=== PATIENT | female | born 1960 | race Caucasian/White ===

== ENCOUNTER 2019-12-25 08:21 | Outpatient (CLI) | payer OTHER, SELFPAY ==
--- NOTE | ~2019-12-25 | MM_ITS ---
EXAMINATION: MM screening [facility] BI w alex HISTORY: Screening mammogram TECHNIQUE: Craniocaudal and mediolateral oblique 3-D tomosynthesis images were obtained and synthetic 2-D images were generated. CAD analysis was submitted and interpreted. COMPARISON: 12/18/2018, 12/10/2017, 12/09/2016 bilateral digital screening mammogram examinations BREAST PARENCHYMAL COMPOSITION: The breasts are heterogeneously dense, which may obscure small masses . FINDINGS: There is no evidence of suspicious mass, calcification, or architectural distortion to sugg est malignancy in either breast. There has been no suspicious interval change. IMPRESSION: 1. No mammographic evidence of malignancy. 2. Recommend routine screening mammography in one year. BI-RADS Category 1: Negative Reviewed, dictated and finalized at location A.
== END 2019-12-25 08:22 | disposition home or self-care (01) ==
PROVIDERS: PCP Family Medicine; Visit Provider Obstetrics & Gynecology Gynecology
DX: Z12.31 Encounter for screening mammogram for malignant neoplasm of breast (principal)
CPT/HCPCS: 77063; 77067

== ENCOUNTER 2020-01-29 14:43 | Outpatient (CLI) | payer OTHER, SELFPAY ==
--- NOTE | ~2020-01-29 | DEXA_ITS ---
Bone Density Report Name: Eufemia Lechuga Age: 59 Sex: Female Ethnicity: White Date of : 1960 Indication: osteopenia; height loss; Referring Provider: CHRISTY BAE Study: Bone densitometry was performed. Exam Date: January 29, 2020 Accession number: [id number] Bone Density: Region BMD T-score Z-score Classification AP Spine (L1-L4) 0.809 -2.2 -0.9 Osteopenia Femoral Neck (Left) 0.713 -1.2 -0.1 Osteopenia Total Hip (Left) 0.882 -0.5 0.3 Normal Total Hip Bilateral Avg 0.924 -0.2 0.7 Normal Femoral Neck (Right) 0.742 -1.0 0.2 Normal Total Hip (Right) 0.965 0.2 1.0 Normal World Health Organization criteria for BMD impression classify patients as: Normal (T-score at or above -1.0), Osteopenia (T-score between -1.0 and -2.5), or Osteoporosis (T-score at or below -2.5). 10-year Fracture Risk(1): Major Osteoporotic Fracture 6.6% Hip Fracture 0.4% Reported Risk Factors: [place] (), Neck BMD=0.713, BMI=27.4 (1) FRAX(R) Version 3.08. Fracture probability calculated for an untreated patient. Fracture probability may be lower if the patient has received treatment. Previous Exams: Region Exam Age BMD T-score BMD Change BMD Change Date g/cm2 vs Baseline vs Previous AP Spine(L1-L4) 01/29/2020 59 0.809 -2.2 -0.068(-7.8%)# -0.068(-7.8%)# 12/10/2017 57 0.877 -1.5 Total Hip(Left) 01/29/2020 59 0.882 -0.5 -0.024(-2.6%) -0.024(-2.6%) 12/10/2017 57 0.906 -0.3 Total Hip(Right) 01/29/2020 59 0.965 0.2 -0.001(-0.1%) -0.001(-0.1%) 12/10/2017 57 0.966 0.2 *Denotes significance at 95% confidence level, LSC for AP Spine = 0.022 g/cm2, LSC for Total Hip = 0.027 g/cm2 Clinical Information Provided by Patient: Has used the following medications: HRT (i.e. estrogen/hormone therapy), Vitamin D, Calcium Patient maximum height was 67.75 Menopause Age: 58 Drinks caffeinated beverages Onset of menses at age 15 Number of children 2 Impression: The patient has low bone mass, based on the Total Spine T-score. The patient has an estimated ten-year risk of hip fracture of 0.4% and an estimated ten-year risk of major fracture of 6.6%, based on the WHO FRAX algorithm. No significant bone loss was observed. Discussion: BONE DENSITY IS LOW AT ONE OR MORE SKELETAL SITES. This patient's lowest T-score is low at one or more skeletal sites. It meets the World Health Organization's (WHO) criteria for ?low bone mass? (T-score betw
== END 2020-01-29 14:44 | disposition home or self-care (01) ==
PROVIDERS: PCP Family Medicine; Visit Provider Obstetrics & Gynecology Gynecology
DX: M85.88 Other specified disorders of bone density and structure, other site (principal); Z78.0 Asymptomatic menopausal state; M85.852 Other specified disorders of bone density and structure, left thigh
CPT/HCPCS: 77080

== ENCOUNTER 2020-12-27 15:04 | Outpatient (CLI) | payer OTHER, SELFPAY ==
--- NOTE | ~2020-12-27 | MM_ITS ---
EXAMINATION: MM screening [facility] BI w alxe HISTORY: Screening TECHNIQUE: Craniocaudal and mediolateral oblique 3-D tomosynthesis images were obtained and synthetic 2-D images were generated. CAD analysis was submitted and interpreted. COMPARISON: Comparison to multiple prior studies sequentially, with oldest reviewed study dated 12/07. BREAST PARENCHYMAL COMPOSITION: The breasts are heterogenously dense, which may obscure small masses. FINDINGS: There are developing asymmetries in the lateral aspect of the right breast and upper outer quadrant of the left breast. IMPRESSION: 1. Developing bilateral breast asymmetries. 2. Additional mammographic views and possible breast ultrasound are recommended. BI-RADS Category 0: Incomplete: Needs additional imaging evaluation. Reviewed, dictated and finalized at location A. IMPRESSION: 1. Developing bilateral breast asymmetries. 2. Additional mammographic views and possible breast ultrasound are recommended . BI-RADS Category 0: Incomplete: Needs additional imaging evaluation.
== END 2020-12-27 15:05 | disposition home or self-care (01) ==
LOC: ANHIMG 15:06
PROVIDERS: PCP Family Medicine; Visit Provider Obstetrics & Gynecology Gynecology
DX: Z12.31 Encounter for screening mammogram for malignant neoplasm of breast (principal); R92.8 Other abnormal and inconclusive findings on diagnostic imaging of breast
CPT/HCPCS: 77063; 77067

== ENCOUNTER 2021-01-24 13:19 | Outpatient (CLI) | payer OTHER, SELFPAY ==
--- NOTE | ~2021-01-24 | MM_ITS ---
EXAMINATION: MM diagnostic mammo BI HISTORY: Bilateral breast asymmetries on screening mammogram TECHNIQUE: Additional 3-D tomosynthesis images of the breasts were performed and synthetic 2-D images were generated. CAD analysis was submitted and interpreted. COMPARISON: 12/27/2020, 12/25/2019, 12/18/2018, 12/10/2017 BREAST PARENCHYMAL COMPOSITION: The breasts are heterogeneously dense, which may obscure small masses . FINDINGS: There is a return to baseline fibroglandular appearance with spot compression of the breast s in the areas questioned on screening mammogram. No suspicious mass, calcification, or architectural distortion are identified. IMPRESSION: 1. No mammographic evidence of malignancy. 2. Recommend routine screening mammography in one year. BI-RADS Category 1: Negative Reviewed, dictated and finalized at location A.
== END 2021-01-24 13:20 | disposition home or self-care (01) ==
LOC: ANHIMG 13:21
PROVIDERS: PCP Family Medicine; Visit Provider Obstetrics & Gynecology Gynecology
DX: R92.8 Other abnormal and inconclusive findings on diagnostic imaging of breast (principal)
CPT/HCPCS: 77066

== ENCOUNTER 2022-04-20 12:33 | Day surgery (SDC) | payer OTHER, SELFPAY ==
[2022-04-04 11:22] VITALS: BMI 26.6
[2022-04-20 13:00] VITALS: BP 114/79; PULSE 81; RESP 16; O2SAT 97
--- NOTE | 2022-04-20 13:14 | PM.IMHP ---
H&P: HPI History of Present Illness Date/Time: 04/20/22 13:14 Chief Complaint: history of colon polyp. Narrative: This is a 61-year-old white female patient who presents for screening colonoscopy. Patient has a prior history of colon polyps. She has had several previous colonoscopies. Most recently 5 years ago. Patient states that her current weight appetite and bowel movements are normal. Patient denies abdominal pain. She has had no bleeding. Family history is noncontributory. Patient does report an aunt who had colon cancer. Review of Systems Review of Systems: Review of systems noncontributory. [facility] Past Medical History Medical History Dyslipidemia GERD without esophagitis Left fibular fracture 12/2005 Multinodular goiter Osteopenia Recurrent herpes simplex Surgical History Surgical History History of root canal procedure (~2020) Family History Family History Mother Hypertension Father Asthma Grandparent Family history of cardiovascular disease Other Family history of malignant neoplasm of breast Social History Social History Smoking status: Never smoker Second hand tobacco smoke exposure: No Alcohol intake: never Substance use: never Substance use type: does not use Living arrangements: with family Additional living arrangements comments: Additional occupation/education comments: [employer] Gender identity (if verbalized by the patient): Male Sexual Orientation (if Verbalized by the Patient): Straight or Heterosexual Spiritual care concerns: No Meds Home Medications and Allergies Home Medications Medication Instructions Recorded Confirmed Type estradiol-norethindrone acet 0.5 1 tablet PO DAILY 09/04/19 04/20/22 History mg-0.1 mg tablet alendronate 70 mg tablet 70 mg PO WEEKLY 12/20/20 04/20/22 History cholecalciferol (vitamin D3) 50 50 mcg PO DAILY 06/27/21 04/20/22 History mcg (2,000 unit) capsule acyclovir 400 mg tablet 400 mg PO TID PRN Fever blisters 11/22/21 04/20/22 Rx #90 tabs simvastatin 40 mg tablet 40 mg PO QHS #90 tabs 12/28/21 04/20/22 Rx pantoprazole 40 mg tablet,delayed 40 mg PO DAILY #90 tabs 01/18/22 04/20/22 Rx release sodium sul 1.479 gram-potas ch See Rx Instructions PO PER PKG DIR 01/19/22 Rx 0.188 gram-magnes sul 0.225 gram #24 tabs tablet (Sutab) Allergies Allergy/AdvReac Type Severity Reaction Status Date / Time trimethoprim Allergy Intermediate Hives Verified 04/20/22 12:57 Sulfa (Sulfonamide Allergy Mild HIVES Verified 04/20/22 12:57 Antibiotics) sulfamethoxazole Allergy Mild HIVES Verified 04/20/22 12:57 erythromycin base Allergy Unknown Other Verified 04/20/22 12:57 sulfamethizole Allergy Unknown unknown Verified 04/20/22 12:57 Exam Narrative: Physical exam reveals patient to be alert. Vital signs stable. HEENT exam is unremarkable. Patient is anicteric. Lungs are clear also Koul taken and percussion. Heart is without murmur or extra sounds. Abdomen bowel sounds present soft nontender with no hepatosplenomegaly. Digital external rectal exam is normal. Assessment and Plan Assessment and plan (1) History of colon polyps: Code(s): Z86.010 - Personal history of colonic polyps Status: Acute Assessment and Plan: Patient has a prior history of colon polyps. Plan is for surveillance colonoscopy now. Further recommendations will be given after endoscopy. Plan follow-up colonoscopy at 5 year intervals.
--- NOTE | 2022-04-20 13:16 | WPDANESEPPF ---
Anes - Initial Pre Proc Eval Procedure: Operation Date: 04/20/22 14:00 Proposed Procedures p Screening Colonoscopy - Carlton Boyd MD Date/Time: 04/20/22 13:16 Surgeon: Carlton Boyd MD Pre Op Diagnosis: Neoplasm screening, history of colon polyps Patient Data Age: 61 Gender: F Height: 1.7 m Weight: 77 kg Allergies Allergy/AdvReac Type Severity Reaction Status Date / Time trimethoprim Allergy Intermediate Hives Verified 04/20/22 12:57 Sulfa (Sulfonamide Allergy Mild HIVES Verified 04/20/22 12:57 Antibiotics) sulfamethoxazole Allergy Mild HIVES Verified 04/20/22 12:57 erythromycin base Allergy Unknown Other Verified 04/20/22 12:57 sulfamethizole Allergy Unknown unknown Verified 04/20/22 12:57 Home Medications Medication Instructions Recorded Confirmed Type estradiol-norethindrone acet 0.5 1 tablet PO DAILY 09/04/19 04/20/22 History mg-0.1 mg tablet alendronate 70 mg tablet 70 mg PO WEEKLY 12/20/20 04/20/22 History cholecalciferol (vitamin D3) 50 50 mcg PO DAILY 06/27/21 04/20/22 History mcg (2,000 unit) capsule acyclovir 400 mg tablet 400 mg PO TID PRN Fever blisters 11/22/21 04/20/22 Rx #90 tabs simvastatin 40 mg tablet 40 mg PO QHS #90 tabs 12/28/21 04/20/22 Rx pantoprazole 40 mg tablet,delayed 40 mg PO DAILY #90 tabs 01/18/22 04/20/22 Rx release sodium sul 1.479 gram-potas ch See Rx Instructions PO PER PKG DIR 01/19/22 Rx 0.188 gram-magnes sul 0.225 gram #24 tabs tablet (Sutab) Patient hx anesthesia problems: none Family hx anesthesia problems: none Results Review: All pre-operative results and documents have been reviewed as part of the pre-operative evaluation. [facility] Past Medical History Medical History Dyslipidemia GERD without esophagitis Left fibular fracture 12/2005 Multinodular goiter Osteopenia Recurrent herpes simplex Surgical History Surgical History (Updated 04/20/22 @ 13:17 by Jack Ruiz MD) H/O colonoscopy History of root canal procedure (~2020) Family History Family History Mother Hypertension Father Asthma Grandparent Family history of cardiovascular disease Other Family history of malignant neoplasm of breast Social History Social History Smoking status: Never smoker Second hand tobacco smoke exposure: No Alcohol intake: never Substance use: never Substance use type: does not use Living arrangements: with family Additional living arrangements comments: Additional occupation/education comments: [employer] Gender identity (if verbalized by the patient): Male Sexual Orientation (if Verbalized by the Patient): Straight or Heterosexual Spiritual care concerns: No Anes - Eval Final PreProcedure Day of Procedure 04/20/22 13:16 Patient weight: overweight Heart: regular rate and rhythm Lungs: clear to auscultation Airway: Mallampati scale class II Neurological: alert and oriented Last oral intake: >/= 8 hours ASA classification: II Emergent: no Anesthesia type and monitoring: general GIVS and standard monitoring Results Review: All pre-operative results and documents have been reviewed as part of the pre-operative evaluation. Informed Consent: The patient's anesthetic plan and its attendant risks and benefits were discussed with the patient/family/POA. Questions were solicited and answers provided to the satisfaction of the patient/family/POA.
[2022-04-20 13:28] VITALS: BMI 26.0
[2022-04-20] MEDS: LACTATED RINGERS 1,000 ML 150 ML IV CONT (13:30)
--- NOTE | 2022-04-20 14:11 | SUR.PREOP ---
1300; PT WEARING MASK. DR CAMPBELL NOTICED PT CHEWING GUM. HAD PT THROW IT AWAY. DR CAMPBELL DISCUSSED RISK OF VOMITING DURING SURGERY.
[2022-04-20 14:19] VITALS: BP 111/73; PULSE 80; RESP 16; O2SAT 98
[2022-04-20 14:29] VITALS: BP 121/87; PULSE 77; RESP 15; O2SAT 100
--- NOTE | 2022-04-20 14:37 | WPDANESPN ---
Anes - Prog Note Post-Op Date/Time: 04/20/22 14:37 Cardiovascular status: normal Respiratory status: normal Airway patency: baseline Mental status: baseline Post-Op hydration status: normal Vital Signs: Last Vital Signs Pulse 80 04/20/22 14:19 Resp 16 04/20/22 14:19 BP 111/73 04/20/22 14:19 Pulse Ox 98 04/20/22 14:19 O2 Del Method Room Air 04/20/22 14:19 Pain Score (VAS): 0/10 I/O: Intake & Output 04/19/22 04/20/22 04/20/22 23:59 07:59 15:59 Intake Total 500 Balance 500 Patient Feedback: Patient satisfied with anesthetic care.
[2022-04-20 14:39] VITALS: BP 118/88; PULSE 77; RESP 15; O2SAT 100
== END 2022-04-20 14:49 | disposition home or self-care (01) ==
PROVIDERS: PCP Family Medicine; Visit Provider Internal Medicine Gastroenterology
PROC: 0DJD8ZZ Inspection of Lower Intestinal Tract, Via Natural or Artificial Opening Endoscopic (ICD-10-PCS; CPT 45378; principal; 2022-04-20 14:00)
DX: Z86.010 Personal history of colon polyps (principal)
CPT/HCPCS: 45378

== ENCOUNTER → 2022-05-11 13:21 | Outpatient (CLI) | payer OTHER, SELFPAY ==
--- NOTE | ~2022-05-11 | MM_ITS ---
EXAMINATION: MM screening [facility] BI w alex HISTORY: Screening mammogram TECHNIQUE: Craniocaudal and mediolateral oblique 3-D tomosynthesis images were obtained and synthetic 2-D images were generated. CAD analysis was submitted and interpreted. COMPARISON: 01/24/2021 bilateral diagnostic mammogram 12/27/2020, 12/25/2019 bilateral screening mammogram examinations BREAST PARENCHYMAL COMPOSITION: The breasts are heterogeneously dense, which may obscure small masses . FINDINGS: There is no evidence of suspicious mass, calcification, or architectural distortion to sugg est malignancy in either breast. There has been no suspicious interval change. IMPRESSION: 1. No mammographic evidence of malignancy. 2. Recommend routine screening mammography in one year. BI-RADS Category 1: Negative Reviewed, dictated and finalized at location A.
--- NOTE | ~2022-05-11 | DEXA_ITS ---
Bone Density Report Name: RICHIE KAHN Age: 61 Sex: Female Ethnicity: White Date of : 1960 Indication: postmenopausal; screening for osteoporosis; height loss; Referring Provider: CHRISTY BAE Study: Bone densitometry was performed. Exam Date: May 11, 2022 Accession number: [id number] Bone Density: Region BMD T-score Z-score Classification AP Spine (L1-L4) 0.925 -1.1 0.3 Osteopenia Femoral Neck (Left) 0.753 -0.9 0.4 Normal Total Hip (Left) 0.935 -0.1 0.9 Normal Femoral Neck (Right) 0.778 -0.6 0.6 Normal Total Hip (Right) 0.955 0.1 1.0 Normal Total Hip Mean 0.945 0.0 1.0 Normal World Health Organization criteria for BMD impression classify patients as: Normal (T-score at or above -1.0), Osteopenia (T-score between -1.0 and -2.5), or Osteoporosis (T-score at or below -2.5). 10-year Fracture Risk(1): Major Osteoporotic Fracture 6.8% Hip Fracture 0.3% Reported Risk Factors: [place] (), Neck BMD=0.753, BMI=27.3 (1) FRAX(R) Version 3.08. Fracture probability calculated for an untreated patient. Fracture probability may be lower if the patient has received treatment. Clinical Information Provided by Patient: Has used the following medications: Fosamax (i.e. alendronate), HRT (i.e. estrogen/hormone therapy), Vitamin D, Calcium Patient maximum height was 67 Menopause Age: 58 Drinks caffeinated beverages Onset of menses at age 15 Number of children 2 Impression: The patient has low bone mass, based on the Total Spine T-score. The patient has an estimated ten-year risk of hip fracture of 0.3% and an estimated ten-year risk of major fracture of 6.8%, based on the WHO FRAX algorithm. Discussion: BONE DENSITY IS LOW AT ONE OR MORE SKELETAL SITES. This patient's lowest T-score is low at one or more skeletal sites. It meets the World Health Organization's (WHO) criteria for ?low bone mass? (T-score between -1.0 and -2.5). The patient's 10-year risk of fracture as calculated by FRAX is less than the threshold where pharmacological therapy is recommended by the National Osteoporosis Foundation (NOF). However, all treatment decisions require clinical judgment and consideration of individual patient factors, including patient preferences, comorbidities, previous drug use, risk factors not captured in the FRAX model (e.g., frailty, falls, vitamin D deficiency, increased bone turnover, interval significant decline in bone density) and possible under or overestimation of fracture risk by FRAX. The patient should follow a healthful lifestyle (good nutrition with adequate calcium and vitamin D, and appropriate weight-bearing exercise). Follow-Up: Consider repeating this study in 2 to 3 years to reassess this patient's status, or sooner if there is some new clinical indicatio
== END ==
PROVIDERS: PCP Family Medicine; Visit Provider Obstetrics & Gynecology Gynecology
DX: Z12.31 Encounter for screening mammogram for malignant neoplasm of breast (principal); Z78.0 Asymptomatic menopausal state; M85.88 Other specified disorders of bone density and structure, other site
CPT/HCPCS: 77063; 77067; 77080

== ENCOUNTER → 2023-05-14 13:10 | Outpatient (CLI) | payer OTHER, SELFPAY ==
--- NOTE | ~2023-05-14 | MM_ITS ---
EXAMINATION: MM screening [facility] BI w alex HISTORY: Screening mammogram TECHNIQUE: Craniocaudal and mediolateral oblique 3-D tomosynthesis images were obtained and synthetic 2-D images were generated. CAD analysis was submitted and interpreted. COMPARISON: 05/11/2022, 01/24/2021, 12/27/2020 BREAST PARENCHYMAL COMPOSITION: The breasts are heterogeneously dense, which may obscure small masses . FINDINGS: No suspicious mass, calcification, or architectural distortion are identified in either sae ast to suggest malignancy. There has been no suspicious interval change. IMPRESSION: 1. No mammographic evidence of malignancy. 2. Recommend routine screening mammography in one year. BI-RADS Category 1: Negative Reviewed, dictated and finalized at location A.
== END ==
PROVIDERS: PCP Family Medicine; Visit Provider Obstetrics & Gynecology Gynecology
DX: Z12.31 Encounter for screening mammogram for malignant neoplasm of breast (principal)
CPT/HCPCS: 77063; 77067

== ENCOUNTER 2023-06-26 17:09 | Outpatient (CLI) | payer OTHER, SELFPAY | END 2023-06-26 17:10 | disposition home or self-care (01) | PROVIDERS: PCP Family Medicine; Visit Provider Family Medicine | DX: R30.0 Dysuria (principal) | CPT/HCPCS: 87086; 87088 ==

== ENCOUNTER 2024-06-09 14:55 | Outpatient (CLI) | payer OTHER, SELFPAY ==
--- NOTE | ~2024-06-09 | XR_ITS ---
AP view of the pelvis and AP and lateral views of the right hip Clinical history: Pain Findings: No acute fracture or dislocation is seen. Osseous alignment is anatomic. Bilateral hip and SI joint spaces are preserved. Soft tissues are unremarkable. Impression: No significant abnormality is seen. Reviewed, dictated and finalized at location . Impression: No significant abnormality is seen.
== END 2024-06-09 14:56 | disposition home or self-care (01) ==
LOC: GOSHIMG 14:56
PROVIDERS: PCP Nurse Practitioner; Visit Provider Nurse Practitioner
DX: R10.31 Right lower quadrant pain (principal)
CPT/HCPCS: 73502

== ENCOUNTER 2024-08-05 08:26 | Outpatient (CLI) | payer OTHER, SELFPAY ==
--- NOTE | ~2024-08-05 | MM_ITS ---
EXAMINATION: MM screening [facility] BI w alex HISTORY: Screening TECHNIQUE: Craniocaudal and mediolateral oblique 3-D tomosynthesis images were obtained and synthetic 2-D images were generated. CAD analysis was submitted and interpreted. COMPARISON: 05/14/2023 and dating back to 12/25/2019 BREAST PARENCHYMAL COMPOSITION: There are scattered areas of fibroglandular density. FINDINGS: Multilobulated asymmetry within the upper outer quadrant of the right breast approximately 3 to 4 cm from the nipple for which spot compression followed by a focused ultrasound is recommended. Otherwise stable parenchymal pattern without suspicious microcalcifications or architectural distorti on. IMPRESSION: Multilobulated asymmetry within the upper outer quadrant of the right breast approximately 3 to 4 cm from the nipple for which spot compression followed by a focused ultrasound is recommended. BI-RADS Category 0: Incomplete, additional imaging is needed. Reviewed, dictated and finalized at location A. ER HELPER IMPRESSION: Multilobulated asymmetry within the upper outer quadrant of the right breast ap proximately 3 to 4 cm from the nipple for which spot compression followed by a focused ultrasound is recommended. BI-RADS Category 0: Incomplete, additional imaging is needed.
== END 2024-08-05 08:27 | disposition home or self-care (01) ==
PROVIDERS: PCP Nurse Practitioner; Visit Provider Nurse Practitioner
DX: Z12.31 Encounter for screening mammogram for malignant neoplasm of breast (principal); R92.8 Other abnormal and inconclusive findings on diagnostic imaging of breast
CPT/HCPCS: 77063; 77067

== ENCOUNTER 2024-08-20 09:35 | Outpatient (CLI) | payer OTHER, SELFPAY ==
--- NOTE | ~2024-08-20 | MR_ITS ---
EXAMINATION: MR hip RT wo con DATE: 08/20/2024 10:25 INDICATION: Pain in right hip. TECHNIQUE: Magnetic resonance imaging (MRI) of the right hip was performed without intravenous contra st. COMPARISON: Pelvis and right hip radiographs 06/09/2024 FINDINGS: Bones/cartilage: There is lumbar levocurvature and mild spondylosis. The femoral head/neck morphologies are normal. Th e hips demonstrate tiny osteophytes. Small ntsyr-pe-syyd images of right hip demonstrate partial-thic kness cartilage loss, worst anterosuperiorly. Labrum: The right acetabular labrum is normal. Fluid: There is a small right hip joint effusion. There is mild left trochanteric bursitis. Soft tissues: There are small partial tears of the hamstring origins. The iliopsoas tendons are normal. There is mi ld bilateral gluteus minimus and gluteus medius tendinopathy. There is a 2.1 cm cyst in the left ovar y, likely benign. IMPRESSION: 1. Mild right hip chondrosis. 2. Small right hip joint effusion. Reviewed, dictated and finalized at location A. CTOR COMPLIANCE
== END 2024-08-20 09:36 | disposition home or self-care (01) ==
LOC: GOSHIMG 09:36
PROVIDERS: PCP Chiropractor; Visit Provider Family Medicine
DX: M94.251 Chondromalacia, right hip (principal); M25.451 Effusion, right hip
CPT/HCPCS: 73721

== ENCOUNTER 2024-08-27 09:26 | Outpatient (CLI) | payer OTHER, SELFPAY ==
--- NOTE | ~2024-08-27 | MMUS_ITS ---
EXAMINATION: MM diagnostic carroll RT w alex, US breast RT limited HISTORY: Right breast mass TECHNIQUE: Additional 3-D tomosynthesis images of the right breast were performed and synthetic 2-D i mages were generated. CAD analysis was submitted and interpreted. High resolution limited right breas t ultrasound was performed. COMPARISON: 08/05/2024 BREAST PARENCHYMAL COMPOSITION:Not Dense. There are scattered areas of fibroglandular density. FINDINGS: MAMMOGRAPHIC FINDINGS: Spot compression views confirm a persistent low-density lobulated mass measuring up to [address] at the outer right breast. ULTRASOUND: At the 9:00 position right breast, 4 cm of the nipple, there is a cluster of cysts, versus septated c yst, measuring up to 1.8 x 1.3 cm in overall extent. IMPRESSION: Clustered cysts versus septated cyst at the 9:00 position of the right breast, as detailed above. Gi sheyla the minimal complexity, 6 month follow-up ultrasound recommended. BI-RADS category 3, probably benign findings. Reviewed, dictated and finalized at location M. K BUYER IMPRESSION: Clustered cysts versus septated cyst at the 9:00 position of the right breast, as detailed above. Given the minimal complexity, 6 month follow-up ultrasound recommended. BI-RADS category 3, probably benign findings.
== END 2024-08-27 09:27 | disposition home or self-care (01) ==
LOC: MICIMG 09:27
PROVIDERS: PCP Obstetrics & Gynecology Gynecology; Visit Provider Nurse Practitioner
DX: R92.8 Other abnormal and inconclusive findings on diagnostic imaging of breast (principal)
CPT/HCPCS: 76642; 77061; 77065; G0279

== ENCOUNTER 2025-02-27 09:58 | Outpatient (CLI) | payer OTHER, SELFPAY ==
--- NOTE | ~2025-02-27 | US_ITS ---
US breast RT limited INDICATION: Follow-up right breast cysts TECHNIQUE: Dedicated Limited right breast ultrasound COMPARISON: Comparison to multiple prior studies sequentially, with oldest reviewed study dated 08/27. FINDINGS: At 9:00, 4 cm from the nipple there is a cluster of microcysts measuring 1.7 cm in aggregat e. No suspicious masses to suggest malignancy. IMPRESSION: 1: Cluster of microcysts of the right breast at 9:00, 4 cm from the nipple measuring 1.7 cm. Routine yearly screening mammogram and regular clinical breast examination are recommended. BI-RADS CATEGORY 2 - BENIGN FINDINGS Reviewed, dictated and finalized at location B. IMPRESSION: 1: Cluster of microcysts of the right breast at 9:00, 4 cm from the nipple tony uring 1.7 cm. Routine yearly screening mammogram and regular clinical breast examination are recommended. BI-RADS CATEGORY 2 - BENIGN FINDINGS
== END 2025-02-27 09:59 | disposition home or self-care (01) ==
LOC: MICIMG 09:59
PROVIDERS: PCP Obstetrics & Gynecology Gynecology; Visit Provider Nurse Practitioner
DX: N60.01 Solitary cyst of right breast (principal)
CPT/HCPCS: 76642

== ENCOUNTER 2025-03-25 08:40 | Outpatient (CLI) | payer OTHER, SELFPAY ==
--- OUTSIDE RECORDS SUMMARY | 2025-03-25 08:46 | XMS_ITS | Clinical Summary ---
Author Organization [facility] [place] [address] [address] Address [address] [place] [id number] Care Team Providers Care Hassock Maker Name Role Phone Elbert Vidal MD Primary Care Provider Allergies Active Allergy Reactions Criticality Noted Date Comments Azithromycin Muscle pain Medium 02/28/2024 Sulfa Rash Medium 02/28/2024 Sulfamethoxazole-Trimethoprim Unknown 2016 Medications simvastatin (ZOCOR) 40 mg tablet Take 1 tablet (40 mg total) by mouth Active pantoprazole DR (PROTONIX) 20 mg EC tablet Take 1 tablet (20 mg total) by mouth Active norethindrone-e thin estradioL (Alyacen , 28,) 1-35 mg-mcg per tablet Take 1 tablet by mouth daily 7 Active calcium citrate-vitamin D3 250 mg-5 mcg (200 unit) tablet Take 1 tablet by mouth daily Active polycarbophil (FIBERCON) 625 mg tablet Take 4 capsules by mouth 2 (two) times a day Active multivitamin tablet Take 1 tablet by mouth daily Active omega-3 fatty acids-fish oil 300-1,000 mg capsule Take 1,400 mg by mouth daily Active ascorbic acid (VITAMIN C) 1,000 mg tablet Take 1 tablet (1,000 mg total) by mouth daily Active cetirizine (ZyrTEC) 10 mg tablet Take 1 tablet (10 mg total) by mouth daily Active vitamin E acid succinate (vitamin E succinate) 268 mg (400 unit) tablet Take 1 tablet by mouth daily Active estradioL (ESTRACE) 0.01 % (0.1 mg/gram) vaginal cream Apply a finger tip amount (.25 gram) to internal labia and vaginal opening at bedtime 2-3 times per week. 42.5 g 5 4 Active acyclovir (ZOVIRAX) 400 mg tablet 6 Active atorvastatin (LIPITOR) 40 mg tablet Take 1 tablet (40 mg total) by mouth nightly at bedtime 5 Active estradiol-noret hindrone 0.5-0.1 mg per tablet Take 1 tablet by mouth daily 5 Active glucosam-chondr -owk4-D2-A-robert (Glucosamine-Ch ondroitin Complx) 750-625-1,000 mg-mg-unit tablet 1 Active L. acidophilus/Bif id. animalis 32 billion cell capsule Take 1 capsule by mouth daily Active Lactobacillus acidophilus (Probiotic) 10 billion cell capsule 0 Active magnesium oxide (MAG-OX) 250 mg (150.8 mg elemental) tablet 2 Active meloxicam (MOBIC) 15 mg tablet Take 1 tablet (15 mg total) by mouth daily 5 Active methylPREDNISol one (Medrol, Tin,) 4 mg DosepackIndicat ions:Dermatitis follow package directions 1 packet 5 Active triamcinolone (KENALOG) 0.1 % creamIndication s:Dermatitis Apply to affected area 1-2 times daily as needed. Avoid face and groin. 30 g 5 02/28/20 26 Active predniSONE (DELTASONE) 10 mg tabletIndicatio ns:Rash and nonspecific skin eruption Take 3 tabs days 1 & 2, 2 tabs days 3 & 4, 1 tab days 5-7. 13 tablet 4 02/28/20 25 Discontin ued(Thera py completed ) Active Problems No known active problems Encounters Date Type Department Care Team Description 03/24/2025 12:10 PM CDT Lab [address] [address] Primary osteoarthritis of right hip (Primary Dx) 03/12/2025 10:40 AM CDT - 03/12/2025 11:59 PM CDT Hospital Encounter [address] [address] Vitamin D deficiency Discharge Disposition: Discharge to home or self care 03/12/2025 10:30 AM CDT Lab [facility] Outpatient Lab at [address] [id number] Vitamin D deficiency (Primary Dx) 02/27/2025 11:30 AM CDT Office Visit [facility] Convenient Care at [address] [address] Sandhya Barcenas NP Dermatitis (Primary Dx) from Last 3 Months Immunizations Immunization Administration Dates Next Due Influenza, Quadrivalent, Asia l Culture-based MDCK, Antibiotic Free, Intramuscular 05/08/2019 Influenza, Quadrivalent, Spl it, Intramuscular 05/11/2016 Influenza, Quadrivalent, Spl it, Preservative Free, Intramuscular 05/10/2023,05/18/2022,05/19/2021,05/06,05/02/2018,06/07/2017 Influenza, Trivalent, IM (MDV) 05/14/2013 MMR 12/17/2018 Tdap 12/31/2022 ZOSTER LIVE 06/27/2015 ZOSTER Recombinant 11/10/2020,05/24/2020 Medical History Medical History Date Comments GERD (gastroesophageal reflux disease) 0 Family History Medical History Relation Name Comments Alcohol abuse Brother Tray Hernandez Depression Brother Tray Hernandez Mental illness Brother Tray Hernandez Alcohol abuse Father Laureano Preciado Depression Father Laureano Preciado Mental illness Father Laureano Preciado Heart attack Maternal Grandfather Ankit Luque Overschmidt Obesity Maternal Grandfather Ankit Luque Overschmidt Miscarriages / Stillbirths Maternal Grandmother Mel Mary Overschmidt Hypertension Mother Marianne Hernandez Cancer Mother's Sister Swapna Overschmidt Guevara COPD Paternal Grandmother Teresa Hernandez Depression Sister 1 Stephani Hernandez Miscarriages / Stillbirths Sister 2 Aminta Sierra Relation Name Status Comments Brother Tray Heranndez Father Laureano Preciado Maternal Grandfather Ankit Luque Overschmidt Maternal Grandmother Mel Hernandez Overschmidt Mother Marianne Hernandez Mother's Sister Swapna Overschmidt Guevara Paternal Grandmother Teresa Hernandez Sister 1 Stephani Hernandez Sister 2 Aminta Sierra Social History Tobacco Use Types Packs/Day Years Used Date Smoking Tobacco: Never Cigarettes Smokeless Tobacco: Never Comments Unknown Sex and Gender Information Value Date Recorded Sex Assigned at Not on file Legal Sex Female 5:48 PM CURB BUILDER Gender Identity Female 06/17/2024 2:21 PM CURB BUILDER Sexual Orientation Straight 06/17/2024 2: 21 PM CURB BUILDER Obstetrics History Last Filed Vital Signs Vital Sign Reading Time Taken Comments Blood Pressure 124/84 02/27/2025 11:10 AM CDT Pulse 73 02/27/2025 11:10 AM CDT Temperature 36.3 C (97.3 F) 02/27/2025 11:10 AM CDT Respiratory Rate 18 02/27/2025 11:10 AM CDT Oxygen Saturation 98% 02/27/2025 11:10 AM CDT Inhaled Oxygen Concentration - - Weight 77.1 kg (170 lb) 02/27/2025 11:10 AM CDT Height 170.2 cm (5' 7) 02/28/2024 3:21 PM CDT Body Mass Index 26.63 02/28/2024 3:21 PM CDT Plan of Treatment Health Maintenance Due Date Last Done Comments Breast Cancer Screening-Mammogram 1962 Cervical Cancer Screening 1962 Colon Cancer Screening-Colonoscopy 1962 Depression Screening 1962 Hepatitis C Screening 1962 Hepatitis B Screening 1980 Regular Well Visit/Exam 18-64 1980 Influenza Vaccine (#1) 2025 , 05/18/2022, 05/19/2021, Additional history exists DTaP/Tdap/Td Vaccine (2 - Td or Tdap) 12/31/2032 12/31/2022 Zoster Vaccine Completed 11/10/2020, 05/13, 06/27/2015 Pneumococcal vaccine <65 Aged Out No longer eligible based on patient's age to complete this topic Procedures Procedure Name Priority Date/Time Associated Diagnosis Comments EGFR Routine 03/24/2025 12:23 PM CDT Primary osteoarthritis of right hip GLUCOSE, RANDOM Routine 03/24/2025 12:23 PM CDT Primary osteoarthritis of right hip HEMOGLOBIN A1C Routine 03/24/2025 12:23 PM CDT Primary osteoarthritis of right hip CREATININE Routine 03/24/2025 12:23 PM CDT Primary osteoarthritis of right hip HEMOGLOBIN Routine 03/24/2025 12:23 PM CDT Primary osteoarthritis of right hip ALBUMIN Routine 03/24/2025 12:23 PM CDT Primary osteoarthritis of right hip VITAMIN D 25 HYDROXY Routine 03/12/2025 10:40 AM CDT Vitamin D deficiency from Last 3 Months Results * eGFR (03/24/2025 12:23 PM CDT) eGFR >90 >=60 mL/min/1. 73 m2 Comment: Interpretive Data Reference Interval Normal >/= 90 mL/min/1.73m2 Mildly decreased* 60 - 89 mL/min/1.73m2 Mildly to moderately decreased 45 - 59 mL/min/1.73m2 Moderately to severely decreased 30 - 44 mL/min/1.73m2 Severely decreased 15 - 29 mL/min/1.73m2 Kidney Failure < 15 mL/min/1.73m2 *Relative to young adult level Estimated glomerular filtration rate is determined by the 2020 CKD-EPI equation recommended by the National Kidney Foundation (A Unifying Approach to GFR Estimation: Recommendations of the NKF-ASK Task Force on Reassessing the Inclusion of Race in Diagnosing Kidney Disease, JASN 2020). The CKD-EPI equation should not be used for patients with unstable renal function and has not been validated in children and those over 70. Current interpretive data was last reviewed 2021. Blood 03/24/2025 12:2 3 PM CDT 03/24/2025 1:58 PM CDT us Tanner He MD LAB BLOOD ORDERABLES Final Result Performing Organization Address [facility] Co de Phone Number [address] [address] * Hemoglobin (03/24/2025 12:23 PM CDT) [facility] Hgb 13.7 11.9 - 15.5 g/dL Blood Venous blood specimen / Unknown 03/24/2025 12:23 PM CDT 03/24/2025 1:58 PM CDT Tanner He MD LAB BLOOD ORDERABLES Final Result Performing Organization Address [facility] de Phone Number [address] [address] * Hemoglobin A1c (03/24/2025 12:23 PM CDT) [facility] Hgb A1C 5.4 4.0 - 5.6 % Estimated Average Glucose 108 mg/dL [facility] Comment: The ADA recommends reporting an estimated Average Glucose (eAG) with all Hemoglobin A1c results using the equation derived from a study of 507 normal and diabetic adults. Minority populations were underrepresented and children were not included. (Diabetes Care 31:0796-4835, 2008). The eAG is not equivalent to a fasting glucose. Blood Venous blood specimen / Unknown 03/24/2025 12:23 PM CDT 03/24/2025 1:58 PM CDT Tanner He MD LAB BLOOD ORDERABLES Final Result Performing Organization Address [facility] Co de Phone Number [address] [address] * Glucose, random (03/24/2025 12:23 PM CDT) Glucose 144 70 - 199 mg/dL Comment: Interpretive Data Fasting glucose >/= 126 mg/dl is diagnostic for diabetes. Fasting is defined as no caloric intake for at least 8 hours. Fasting glucose between 100 mg/dl to 125 mg/dl is diagnostic of prediabetes. In a patient with classic symptoms of hyperglycemia or hyperglycemic crisis, a random glucose >/= 200 mg/dl is diagnostic for diabetes. In the absence of unequivocal hyperglycemia, results should be confirmed by repeat testing. The classification and Diagnosis of Diabetes Diabetes Care 2021; 46: S19-S40. Current interpretive data was last revised 2022. Blood Venous blood specimen / Unknown 03/24/2025 12:23 PM CDT 03/24/2025 1:58 PM CDT us Tanner He MD LAB BLOOD ORDERABLES Final Result Performing Organization Address [facility] Co de Phone Number [address] [place] [address] * Creatinine (03/24/2025 12:23 PM CDT) Creatinine 0.71 0.60 - 1.10 mg/dL Blood Venous blood specimen / Unknown 03/24/2025 12:23 PM CDT 03/24/2025 1:58 PM CDT Tanner He MD LAB BLOOD ORDERABLES Final Result [address] [place] [address] * Albumin (03/24/2025 12:23 PM CDT) Albumin 4.4 3.5 - 5.0 g/dL Blood Venous blood specimen / Unknown 03/24/2025 12:23 PM CDT 03/24/2025 1:58 PM CDT us Tanner He MD LAB BLOOD ORDERABLES Final Result [facility] [address] [facility] Department [place] [address] * Vitamin D 25 hydroxy (03/12/2025 10:40 AM CDT) Vitamin D 25-OH 68 30 - 80 ng/mL Blood 03/12/2025 10:4 0 AM CDT 03/12/2025 4:19 PM CDT Narrative ED[facility]IN - 03/12/2025 5:52 PM CDT FAX RESULTS TO [phone] KATHIA HARRISON us Elis Sanchez MD LAB BLOOD ORDERABLES Fin al Result [facility] [address] [place] [address] from Last 3 Months Insurance [employer] [facility] [employer] Care Teams Hassock Maker Relationship Specialty Start Date End Date Elbert Vidal MD [address] [place] [address] DR CARRERA [address] [place] [id number] PCP - General Family Practice 06/17/24
--- OUTSIDE RECORDS SUMMARY | 2025-03-25 08:46 | XMS_ITS | Clinical Summary ---
Author Organization [facility] Address [address], [address] [address] Phone Care Team Providers Care Carriage Rider Name Role Phone Carlton Reaves DO Unavailable [phone] Elbert Vidal MD Primary Care Provider Allergies Active Allergy Reactions Criticality Noted Date Comments Sulfamethoxazole-Trimethoprim Unknown 2016 Medications polyethylene glycol (MIRALAX) Powder Mix the entire bottle with 64 oz of a clear liquid. Use as directed by the office for colonoscopy prep. 255 g 0 6 Active ALAYCEN 1-35 MG-MCG Tablet Take 1 Tab by mouth daily. 12 7 Active simvastatin (ZOCOR) 40 MG Tablet Take 40 mg by mouth every evening. Active pantoprazole (PROTONIX) 40 MG Tablet Delayed Response Take 40 mg by mouth daily. Active MULTIPLE VITAMIN PO Take 1 Tab by mouth daily. Active Mosheim-3 Fatty Acids (FISH OIL PO) Take 1,400 mg by mouth daily. Active Ascorbic Acid (VITAMIN C) 1000 MG Tablet Take 1 Tab by mouth daily. Active Calcium Citrate-Vitamin D (CITRACAL + D PO) Take 1 Tab by mouth daily. Active Vitamin E 400 UNIT Tablet Take 1 Tab by mouth daily. Active Milk Thistle 175 MG Capsule Take 1 Cap by mouth daily. Active Probiotic Product (JumpLinc) Capsule Take 1 Cap by mouth daily. Active Calcium Polycarbophil (CONCENTRATED FIBER PO) Take 4 Caps by mouth 2 times daily. Active cetirizine (ZYRTEC ALLERGY) 10 MG Tablet Take 10 mg by mouth daily. Active Family History Medical History Relation Name Comments Colon Cancer Maternal Aunt Relation Name Status Comments Maternal Aunt Social History Tobacco Use Types Packs/Day Years Used Date Smoking Tobacco: Never Smokeless Tobacco: Never Alcohol Use Standard Drinks/Week Comments Yes 0 (1 standard drink = 0.6 oz pur e alcohol) Social Comments Unknown Sex and Gender Information Value Date Recorded Sex Assigned at Not on file Legal Sex Female 11:12 PM CDT Gender Identity Not on file Sexual Orientation Not on file Plan of Treatment Health Maintenance Due Date Last Done Comments Hepatitis C Virus (HCV) Screening 1962 TdaP Immunization 1962 Pap Smear 10/21/1983 Cervical Cancer Screening (CCS) 1992 HPV/Cotest 1992 Cologuard 10/21/2007 Immunochemical Fecal Occult Blood 10/21/2007 Pneumococcal Immunization (5 0+ years) (1 of 1 - PCV) 2012 Zoster Immunization (1 of 2) 2012 Colonoscopy 09/28/2021 09/28/2016 Colorectal Cancer Screening 09/28/2021 SARS-COV-2 Immunization (1 - 2023-25 season) 2024 Influenza Immunization (#1) 2025 Respiratory Syncytial Virus (RSV) Immunization (Adult) (1 - 1-dose 75+ series) 2037 Hepatitis B Immunization Aged Out No longer eligible based on patient's age to complete this topic Human Papillomavirus (HPV) Immunization Aged Out No longer eligible b ased on patient's age to complete this topic Meningococcal Immunization (ACWY) Aged Out No longer eligible based on patient's age to complete this topic Rotavirus Immunization Aged Out No lo nger eligible based on patient's age to complete this topic Procedures Procedure Name Priority Date/Time Associated Diagnosis Comments COLONOSCOPY Routine 09/28/2016 from Last 3 Months or Most Recently Relevant to Health Maintenance Results * COLONOSCOPY (09/28/2016) Geronimo Conn MD PROCEDURE/MINOR SURGICAL ORDERA BLES Final Result from Last 3 Months or Most Recently Relevant to Health Maintenance Care Teams Carriage Rider Relationship Specialty Start Date End Date Elbert Vidal MD PCP - General Family Medicine 03/11/19 Carlton Reaves DO Gastroenterology 10/02/16
--- OUTSIDE RECORDS SUMMARY | 2025-03-25 08:46 | XMS_ITS | Encounter Summary ---
Author Organization [facility] Address [address] [place] [address] Care Team Providers Care Central Office Worker Name Role Phone Elbert Vidal MD Primary Care Provider Encounter Details Date Type Department Care Team (Late st Contact Info) Description 03/24/2025 12:10 PM CDT Lab [address] [address] Primary osteoarthritis of right hip (Primary Dx) Social History Tobacco Use Types Packs/Day Years Used Date Smoking Tobacco: Never Cigarettes Smokeless Tobacco: Never Comments Unknown Sex and Gender Information Value Date Recorded Sex Assigned at Not on file Legal Sex Female 5:48 PM CHIEF BUSINESS DEVELOPMENT OFFICER Gender Identity Female 06/17/2024 2:21 PM CHIEF BUSINESS DEVELOPMENT OFFICER Sexual Orientation Straight 06/17/2024 2: 21 PM CHIEF BUSINESS DEVELOPMENT OFFICER documented as of this encounter Plan of Treatment Pending Results Name Type Priority Associated Diagnoses Date /Time Nicotine metabolite screen, urine Lab Routine Primary osteoarthritis of right hip 03/24/2025 12:23 PM CDT Scheduled Orders Name Type Priority Associated Diagnoses Orde r Schedule Nicotine metabolite screen, urine Lab Routine Primary osteoarthritis of right hip Expected: 03/27/2025, Expires: 03/24/2026 documented as of this encounter Procedures Procedure Name Priority Date/Time Associated Diagnosis [...] PM CDT Primary osteoarthritis of right hip documented in this encounter Results * eGFR (03/24/2025 12:23 PM CDT) [...] of Race in Diagnosing Kidney Disease, JASN 202). The CKD-EPI equation should not be used for patients with unstable renal function and has not been validated in children and those over 70. Current interpretive data was last reviewed 2021. Blood 03/24/2025 12:2 3 PM CDT 03/24/2025 1:58 PM CDT us Tanner He MD LAB BLOOD ORDERABLES Final Result Performing Organization Address [facility]/ZIP Co de Phone Number [address] [address] * Albumin (03/24/2025 12:23 PM CDT) Albumin 4.4 3.5 - 5.0 g/dL Blood Venous blood specimen / Unknown 03/24/2025 12:23 PM CDT 03/24/2025 1:58 PM CDT Tanner He MD LAB BLOOD ORDERABLES Final Result Performing Organization Address [facility] Co de Phone Number [address] [address] * Hemoglobin (03/24/2025 12:23 PM CDT) Hgb 13.7 11.9 - 15.5 g/dL Blood Venous blood specimen / Unknown 03/24/2025 12:23 PM CDT 03/24/2025 1:58 PM CDT us Tanner He MD LAB BLOOD ORDERABLES Final Result Performing Organization Address [facility] Co de Phone Number [address] [address] * Creatinine (03/24/2025 12:23 PM CDT) Creatinine 0.71 0.60 - 1.10 mg/dL Blood Venous blood specimen / Unknown 03/24/2025 12:23 PM CDT 03/24/2025 1:58 PM CDT us Tanner He MD LAB BLOOD ORDERABLES Final Result Performing Organization Address [facility]/ZIP Co de Phone Number [address] [place] [address] * Hemoglobin A1c (03/24/2025 12:23 PM CDT) Pathologist [facility] Hgb A1C 5.4 4.0 - 5.6 % Estimated Average Glucose 108 mg/dL [facility] Comment: The ADA recommends reporting an estimated Average Glucose (eAG) with all Hemoglobin A1c results using the equation derived from a study of 507 normal and diabetic adults. Minority populations were underrepresented and children were not included. (Diabetes Care 31:2380-6194, 2008). The eAG is not equivalent to a fasting glucose. Blood Venous blood specimen / Unknown 03/24/2025 12:23 PM CDT 03/24/2025 1:58 PM CDT us Tanner He MD LAB BLOOD ORDERABLES Final Result Performing Organization Address [facility] de Phone Number [address] [place] [address] * Glucose, random (03/24/2025 12:23 PM CDT) [facility] Glucose 144 70 - 199 mg/dL Comment: [...] BLOOD ORDERABLES Final Result Performing Organization Address [facility] de Phone Number [address] [place] [address] documented in this encounter Visit Diagnoses Diagnosis Primary osteoarthritis of right hip- Primary documented in this encounter Care Teams Central Office Worker Relationship Specialty Start Date End Date Elbert Vidal MD [address] [facility] [address] [address] PCP - General Family Practice 06/17/24 documented as of this encounter
--- NOTE | 2025-03-25 08:53 | ECG_ITS ---
Test Date: 2025-03-25 08:58:36 Measurements Intervals [place] Rate: 64 P: 49 ID: [id number] QRS: 6 QRSD: 93 T: 31 QT: 384 QTc: 397 Interpretive Statements SINUS RHYTHM POSSIBLE LEFT ATRIAL ENLARGEMENT INCOMPLETE RIGHT BUNDLE BRANCH BLOCK BORDERLINE ECG No previous ECG available for comparison Electronically Signed On 03-25-2025 09:14:01 CDT by Cooper Sandoval D.O.
== END 2025-03-25 08:41 | disposition home or self-care (01) ==
LOC: ANHCARD 08:43
PROVIDERS: PCP Obstetrics & Gynecology Gynecology; Visit Provider Orthopaedic Surgery
DX: M16.11 Unilateral primary osteoarthritis, right hip (principal); I45.10 Unspecified right bundle-branch block
CPT/HCPCS: 93005

== ENCOUNTER 2025-05-11 13:53 | Outpatient (CLI) | payer OTHER, SELFPAY ==
--- OUTSIDE RECORDS SUMMARY | 2025-05-11 14:28 | XMS_ITS | Clinical Summary ---
Author Organization [place] [address] [place] Address [address] [place] [phone] Care Team Providers Care Plant Anatomy Teacher Name Role Phone Elbert Vidal MD Primary Care Provider Allergies Active Allergy Reactions Criticality Noted Date Comments Azithromycin Muscle pain Medium 02/28/2024 Sulfa Rash Medium 02/28/2024 Sulfamethoxazole-Trimethoprim Unknown 2016 Medications simvastatin (ZOCOR) 40 mg tablet Take 1 tablet (40 mg total) by mouth Active pantoprazole DR (PROTONIX) 20 mg EC tablet Take 1 tablet (20 mg total) by mouth Active norethindrone-et hin estradioL (Alyacen , 28,) 1-35 mg-mcg per [...] by mouth nightly at bedtime 5 Active estradiol-noreth indrone 0.5-0.1 mg per tablet Take 1 tablet by mouth daily 5 Active glucosam-chondr- bhn0-D6-V-robert (Glucosamine-Cho ndroitin Complx) 750-625-1,000 mg-mg-unit tablet 1 Active L. acidophilus/Bifi d. animalis 32 billion cell capsule Take 1 capsule by mouth daily Active Lactobacillus acidophilus (Probiotic) 10 billion cell capsule 0 Active magnesium oxide (MAG-OX) 250 mg (150.8 mg elemental) tablet 2 Active meloxicam (MOBIC) 15 mg tablet Take 1 tablet (15 mg total) by mouth daily 5 Active methylPREDNISolo ne (Medrol, Tin,) 4 mg DosepackIndicati ons:Dermatitis follow package directions 1 packet 5 Active triamcinolone (KENALOG) 0.1 % creamIndications :Dermatitis Apply to affected area 1-2 times daily as needed. Avoid face and groin. 30 g 5 02/28/20 26 Active Active Problems No known active problems Encounters Date Type Department Care Team Description 03/24/2025 12:10 PM CDT Lab [address] [address] Primary osteoarthritis of right hip (Primary Dx) 03/12/2025 10:40 AM CDT - 03/12/2025 11:59 PM CDT Hospital Encounter [facility] [address] [place] [address] Vitamin D deficiency Discharge Disposition: Discharge to home or self care 03/12/2025 10:30 AM CDT Lab [facility] Outpatient Lab at [address] [phone] Vitamin D deficiency (Primary Dx) 02/27/2025 11:30 AM CDT Office Visit [facility] Convenient Care at [address] [address] Sandhya Barcenas NP Dermatitis (Primary [...] Laureano Preciado Heart attack Maternal Grandfather Ankit Rebel Overschmidt Obesity Maternal Grandfather Ankit Luque Overschmidt Miscarriages / Stillbirths Maternal Grandmother Somersetcorrina Hernandez Overschmidt Hypertension Mother Marianne Hernandez Cancer Mother's Sister Swapna Overschmidt Guevara COPD Paternal Grandmother Teresa Hernandez Depression Sister 1 Stephani Hernandez Miscarriages / Stillbirths Sister 2 Aminta Giordanoling Relation Name Status Comments Brother Tray Hernandez Father Laureano Preciado Maternal Grandfather Ankit Luque Overschmidt Maternal Grandmother Mel Mary Overschmidt Mother Marianne Hernandez Mother's Sister Swapna Overschmidt Guevara Paternal Grandmother Teresa Hernandez Sister 1 Stephani Hernandez Sister 2 Aminta Sierra Social History Tobacco Use Types Packs/Day Years Used Date Smoking Tobacco: Never Cigarettes Smokeless Tobacco: Never Comments Unknown Sex and Gender Information Value Date Recorded Sex Assigned at Not on file Legal Sex Female 5:48 PM CUTTER FINISHER Gender Identity Female 06/17/2024 2:21 PM CUTTER FINISHER Sexual Orientation Straight 06/17/2024 2: 21 PM CUTTER FINISHER Obstetrics History Last Filed Vital Signs Vital [...] Visit/Exam 18-64 1980 Influenza Vaccine (#1) 2025 3, 05/18/2022, 05/19/2021, Additional history exists DTaP/Tdap/Td Vaccine [...] PM CDT Primary osteoarthritis of right hip NICOTINE METABOLITE SCREEN, URINE Routine 03/24/2025 12:23 PM CDT Primary osteoarthritis [...] 3 PM CDT 03/24/2025 1:58 PM CDT Tanner He MD LAB BLOOD ORDERABLES Final Result Performing Organization Address [facility] de Phone Number EDVIN [address] [employer] [place] [address] * Nicotine metabolite screen, urine (03/24/2025 12:23 PM CDT) Pathologist [facility] Nicotine, ur <5.0 <5.0 ng/mL [place] [facility] Cotinine, ur <5.0 <5.0 ng/mL [facility] Anabasine ur <2.0 <2.0 ng/mL [facility] Comment: ADDITIONAL INFORMATION This test was developed and its performance characteristics determined by [facility] in a manner consistent with CLIA requirements. This test has not been cleared or approved by the U.S. Food and Drug Administration. Test Performed by: [facility] - [facility] [address] [place] [address] Physical Testing Supervisor: Maykel Severino Ph.D.; CLIA# [id number] Nornicotine, ur <2.0 <2.0 ng/mL [facility] Urine (Urine, Clean Catch) 03/24/2025 12:23 PM CDT 03/24/2025 2:24 PM CDT Tanner He MD LAB URINE ORDERABLES Final Result Performing Organization Address [facility] de Phone Number EDVIN [address] [employer] [place] [address] [place] [facility] * Hemoglobin (03/24/2025 12:23 PM CDT) [facility] Hgb 13.7 11.9 - 15.5 g/dL Blood Venous blood specimen / Unknown 03/24/2025 12:23 PM CDT 03/24/2025 1:58 PM CDT Tanner He MD LAB BLOOD ORDERABLES Final Result Performing Organization Address [facility] de Phone Number [id number] [address] * Hemoglobin A1c (03/24/2025 12:23 PM CDT) Hgb A1C 5.4 4.0 - 5.6 % Estimated Average Glucose 108 mg/dL [facility] Comment: The ADA recommends reporting an estimated Average Glucose (eAG) with all Hemoglobin A1c results using the equation derived from a study of 507 normal and diabetic adults. Minority populations were underrepresented and children were not included. (Diabetes Care 31:0168-3222, 2008). The eAG is not equivalent to a fasting glucose. Blood Venous blood specimen / Unknown 03/24/2025 12:23 PM CDT 03/24/2025 1:58 PM CDT Tanner He MD LAB BLOOD ORDERABLES Final Result Performing Organization Address [facility] de Phone Number [address] [address] * Glucose, random (03/24/2025 12:23 PM CDT) [...] BLOOD ORDERABLES Final Result Performing Organization Address [facility] de Phone Number [address] [address] * Creatinine (03/24/2025 12:23 PM CDT) [facility] Creatinine 0.71 0.60 - 1.10 mg/dL Blood Venous blood specimen / Unknown 03/24/2025 12:23 PM CDT 03/24/2025 1:58 PM CDT Tanner He MD LAB BLOOD ORDERABLES Final Result Performing Organization Address [facility] de Phone Number [address] [address] * Albumin (03/24/2025 12:23 PM CDT) [facility] Albumin 4.4 3.5 - 5.0 g/dL Blood Venous blood specimen / Unknown 03/24/2025 12:23 PM CDT 03/24/2025 1:58 PM CDT Tanner He MD LAB BLOOD ORDERABLES Final Result Performing Organization Address [facility] de Phone Number [address] [employer] [place] [address] * Vitamin D 25 hydroxy (03/12/2025 10:40 AM CDT) Pathologist [facility] Vitamin D 25-OH 68 30 - 80 ng/mL Blood 03/12/2025 10:4 0 AM CDT 03/12/2025 4:19 PM CDT Narrative EDVIN - 03/12/2025 5:52 PM CDT FAX RESULTS TO [phone] KATHIA HARRISON Elis Sanchez MD LAB BLOOD ORDERABLES Fin al Result Performing Organization Address [place] [facility]/[place] Number [place] [address] [address] [place] [address] from Last 3 Months Insurance [facility] [employer] [facility] [employer] Care Teams Plant Anatomy Teacher Relationship Specialty Start Date End Date Elbert Vidal MD [facility] [place] [address] PCP - General Family Practice 06/17/24
--- OUTSIDE RECORDS SUMMARY | 2025-05-11 14:28 | XMS_ITS | Clinical Summary ---
Author Organization [facility] Address [address], [address] [address] Phone Care Team Providers Care Portal Developer Name Role Phone Carlton Reaves DO Unavailable [phone] Elbert Vidal MD Primary Care Provider [...] Take 1 Tab by mouth daily. Active [place]-3 Fatty Acids (FISH OIL PO) Take 1,400 [...] Cap by mouth daily. Active Probiotic Product (MCTX Properties) Capsule Take 1 Cap by mouth daily. [...] Colonoscopy 09/28/2021 09/28/2016 Colorectal Cancer Screening 09/28/2021 Influenza Immunization (#1) 2025 SARS-COV-2 Immunization ( - season) 2025 Respiratory Syncytial Virus (RSV) Immunization (Adult) [...] Recently Relevant to Health Maintenance Care Teams Portal Developer Relationship Specialty Start Date End Date Elbert Vidal MD PCP - General Family Medicine 03/11/19 Carlton Reaves DO Gastroenterology 10/02/16
[2025-05-11 15:17] LABS: Hematocrit 41.7 % (37.0-47.0); Hemoglobin 13.8 g/dL (12.0-15.0); Immature Granulocyte Percent A 0.3 % (0-0.5); Lymphocytes Absolute Auto 2.51 K/mm3 (0.9-3.2); Mean Corpuscular HGB Conc 33.1 g/dl (32-36); Mean Corpuscular Hemoglobin 31.3 pg (26-34); Mean Corpuscular Volume 94.6 fl (80-100); Nucleated Red Blood Cells Absolute Auto 0.000 K/mm3 (0.0-0.012); Nucleated Red Blood Cells Perc 0.0 % (0.0-0.2); Platelet Count Result 284 k/mm3 (150-375); Red Blood Count 4.41 M/mm3 (4.2-5.4); White Blood Count 6.8 K/mm3 (4.5-10.0)
[2025-05-11 15:32] LABS: Albumin Level 4.5 g/dL (3.5-5.1); Estimated Glomerular Filt Rate > 60; Glucose 108 mg/dL (65-110)
[2025-05-11 15:35] LABS: Hemoglobin A1C 5.4 % (<5.7)
[2025-05-11 16:28] LABS: MRSA (PCR) NOT DETECTED (NOT DETECTE)
== END 2025-05-11 13:54 | disposition home or self-care (01) ==
LOC: ANHSURGERY 13:57
PROVIDERS: PCP Family Medicine; Visit Provider Orthopaedic Surgery
DX: Z01.812 Encounter for preprocedural laboratory examination (principal); M16.11 Unilateral primary osteoarthritis, right hip
CPT/HCPCS: 80307; 82040; 82565; 82947; 83036; 85025; 87641

== ENCOUNTER 2025-05-28 00:50 | Day surgery (SDC) | payer OTHER, SELFPAY ==
--- NOTE | 2025-05-11 13:59 | PC.NURSE ---
[facility] has started construction of its new state of the art ER which will open Spring 2026. With this, we anticipate parking may be a challenge for some our surgical patients and families. Parking spaces are limited but are available for all Surgical, obstetrics, and ER patients sharing this lot. If you arrive and find you are having a hard time finding a parking space, please note that we understand the challenges, please drive around the hospital and park near Hospital Entrance 1. When you enter this entrance, you can ask a volunteer to direct or take you back to the surgical waiting area to check in. We appreciate everyone?s understanding of these expected challenges while we build for your future. Report to the Outpatient Waiting Room, entrance under the green pavilion located off [address], at time _11 AM on date __05/28/25 . Planned Procedure Time: _1 PM .? Time changes happen often and if your time is changed the preop area will call you the afternoon before. - You and your visitor will be asked to self-screen and do not enter if you have any COVID symptoms. Please call surgeon if you need to reschedule. - A mask is optional within the hospital at this time. Patients may have clear liquids (water, carbonated beverages, clear teas, apple juice) until 3 hours prior to surgery ( 10 AM) with a maximum of 20 ounces. - No food from midnight until time of surgery and no smoking, or chewing tobacco (or any form of nicotine). No chewing gum, candy or mints. - Take only the following medications with a SIP of water on the morning of surgery: NONE DO NOT STOP ANY OF YOUR OTHER PRESCRIPTION MEDICATIONS PRIOR TO SURGERY EXCEPT THE FOLLOWING Hold all vitamins and supplements for 3 days per anesthesiologist.LAST DOSE 05/24/25 Medications to discontinue per physician ADVIL HOLD 7 DAYS PRE OP PER DR KIMBLE Date to take last dose__05/20/25 Please no make-up, nail [place] citizen, hairspray, perfume, deodorant, or body powder the day of surgery.? No jewelry (including any body piercings) or valuables the day of surgery, leave them at home.? Please take a shower or bath the night before, or the morning of, surgery with an antibacterial soap.? Wear comfortable, loose fitting clothing.? Children are encouraged to wear pajamas. - Jewelry must be removed prior to entering the operating room.? Rings and piercings that are not removed may be cut off. - The hospital will not accept responsibility for valuables.? - Please leave all valuables, including medications, at home the day of surgery. If you are going home after surgery, a licensed sales driver must drive you home.? - NO public transportation without another adult if you receive anesthesia. - We recommend that an adult stay with you for 24 hours following discharge. - We also recommend that you do not drive, make important decision, drink alcoholic beverages, or take any drugs that were not prescribed by your health care provider for at least 24 hours after your discharge time. For Pediatric surgeries, we recommend two adults accompany the child home. Follow any additional instructions given to you from your surgeon. VERBAL AND WRITTEN instructions given to __PATIENT__AND SPOUSE and asked if any additional questions and then verbalized understanding. Patient advised to call surgeon office or pre surgery nurse liaison [phone] if any additional questions.
[2025-05-11 14:02] VITALS: BMI 27.6
[2025-05-11 14:48] VITALS: BP 135/80; PULSE 74; RESP 18; TEMP 36.7; O2SAT 98
[2025-05-28] VITALS (14 sets, daily range): BP systolic 102–149; BP diastolic 54–85; PULSE 65–86; RESP 10–20; TEMP 35.9–36.7; O2SAT 96–100
--- NOTE | ~2025-05-28 | XR_ITS ---
XR surgery orthopedic INDICATION: Intraoperative arthroplasty COMPARISON: None FINDINGS: 2 spot intraoperative fluoroscopic images of the right hip demonstrate right hip arthroplasty.. IMPRESSION: Right hip arthroplasty is noted. Please see operative report for further details. Reviewed, dictated and finalized at location S.
--- NOTE | ~2025-05-28 | XR_ITS ---
EXAMINATION: XR hip RT min 2V, 05/28/2025 15:40 CDT HISTORY: POST-OP RIGHT HIP BIPOLAR COMPARISON: No comparisons available. Findings: No acute fracture or malalignment. Arthroplasty intact Soft tissues unremarkable. Impression: No acute fracture or malalignment. Reviewed, dictated and finalized at location P. Impression: No acute fracture or malalignment.
--- OUTSIDE RECORDS SUMMARY | 2025-05-28 00:52 | XMS_ITS | Clinical Summary ---
Author Organization [place] [address] [place] Address [address] [place] [phone] Care Team Providers Care Public Works Inspector Name Role Phone Elbert Vidal MD Primary [...] Take 1 tablet by mouth daily Active acyclovir (ZOVIRAX) 400 mg tablet 6 Active atorvastatin (LIPITOR) 40 mg tablet Take 1 tablet (40 mg total) by mouth nightly at bedtime 5 Active estradiol-noret hindrone 0.5-0.1 mg per tablet Take 1 tablet by mouth daily 5 Active glucosam-chondr -jec6-S0-Y-robert (Glucosamine-Ch ondroitin Complx) 750-625-1,000 mg-mg-unit tablet 1 [...] groin. 30 g 5 02/28/20 26 Active estradioL (ESTRACE) 0.01 % (0.1 mg/gram) vaginal cream Apply a finger tip amount (.25 gram) to internal labia and vaginal opening at bedtime 2-3 times per week. 42.5 g 5 5 Active estradioL (ESTRACE) 0.01 % (0.1 mg/gram) vaginal cream Apply a finger tip amount (.25 gram) to internal labia and vaginal opening at bedtime 2-3 times per week. 42.5 g 5 4 05/19/20 25 Discontin ued(Reord er) Active Problems Problem Noted Date Diagnosed Date Abnormal mammogram of right breast 05/19/2025 Breast cyst 05/19/2025 Dyslipidemia 05/19/2025 Dysuria 05/19/2025 GERD without esophagitis 05/19/2025 History of colon polyps 05/19/2025 Osteopenia 05/19/2025 Recurrent herpes simplex 05/19/2025 Right groin pain 05/19/2025 Right hip pain 05/19/2025 Cystocele with prolapse 05/19/2025 Vaginal atrophy 05/19/2025 Encounters Date Type Department Care Team Description 05/19/2025 10:20 AM CDT Office Visit [facility] Medicine Surgery [address] [facility] [address] [address] [place] [address] Cristy Griffin MD Female genital prolapse, unspecified type (Primary Dx); Vaginal atrophy 03/24/2025 12:10 PM CDT Lab [address] [address] Primary osteoarthritis of right hip (Primary Dx) 03/12/2025 10:40 AM CDT - 03/12/2025 11:59 PM CDT Hospital Encounter [address] [address] Vitamin D deficiency Discharge Disposition: Discharge to home or self care 03/12/2025 10:30 AM CDT Lab [facility] Outpatient Lab at [address] [phone] Vitamin D deficiency (Primary Dx) 02/27/2025 11:30 AM CDT Office Visit [facility] Convenient Care at [address] [phone] Sandhya Barcenas NP Dermatitis (Primary Dx) from [...] Ankit Luque Overschmidt Obesity Maternal Grandfather Ankit Johnson. Overschmidt Miscarriages / Stillbirths Maternal Grandmother Mel Mary Overschmidt Hypertension Mother Marianne Hernandez Cancer Mother's Sister Swapna Overschmidt Guevara COPD Paternal Grandmother Teresa Hernandez Depression Sister 1 Stephani Hernandez Miscarriages / Stillbirths Sister 2 Aminta David Sierra Relation Name Status Comments Brother Tray Hernandez Father Laureano Preciado Maternal Grandfather Ankit Johnson. Overschmidt Maternal Grandmother Mel Jacksonle Overschmidt Mother Marianne Hernandez Mother's Sister Swapna Overschmidt Guevara Paternal Grandmother Teresa Hernandez Sister 1 Stephani Hernandez Sister 2 Aminta Hernandez [place] Social History Tobacco Use Types Packs/Day Years Used Date Smoking Tobacco: Never Cigarettes Smokeless Tobacco: Never Comments Unknown Sex and Gender Information Value Date Recorded Sex Assigned at Not on file Legal Sex Female 5:48 PM AUTOMATIC MOUNTER Gender Identity Female 06/17/2024 2:21 PM AUTOMATIC MOUNTER Sexual Orientation Straight 06/17/2024 2: 21 PM AUTOMATIC MOUNTER Obstetrics History Last Filed Vital Signs Vital [...] Vaccine (2 - Td or Tdap) 12/31/2032 12/31/2022, 10/15/2012 Zoster Vaccine Completed 11/10/2020, 05/13, 06/27/2015 Pneumococcal vaccine <65 Aged Out No longer eligible based on patient's age to complete this topic Procedures Procedure Name Priority Date/Time Associated Diagnosis Comments MEASURE POST VOID RESIDUAL Routine 05/19/2025 10:39 AM CDT Female genital prolapse, unspecified type POCT URINALYSIS DIPSTICK Routine 05/19/2025 10:39 AM CDT Female genital prolapse, unspecified type EGFR Routine 03/24/2025 12:23 PM CDT Primary [...] deficiency from Last 3 Months Results * Measure post void residual (05/19/2025 10:39 AM CDT) Narrative Ana Cristina Santos, [place] - 05/19/2025 10:39 AM CDT Measurement of post-voiding residual urine and/or bladder capacity by ultrasound, non-imaging. PVR = 6 mls us Cristy Griffin MD NURSING ASSESSMENTS F inal Result * POCT urinalysis dipstick (05/19/2025 10:39 AM CDT) Color, Urine, POC Yellow Clarity, ur, POC Clear Clear Glucose, ur, POC Negative Negative Bilirubin, ur, POC Negative Negative Ketones, ur, POC Negative Negative Specific [place], POC 1.010 1.003 - 1.030 Blood, ur, POC Negative Negative pH, ur, POC 8.0 5.0 - 8.0 Protein, ur, POC Negative Negative Urobilinogen, urine, POC 0.2 0.2 - 1.0 mg/dL Nitrite, ur, POC Negative Negative Leukocytes, ur, POC Negative Negative Lot Number 0 Urine 05/19/2025 10:3 9 AM CDT us Cristy Griffin MD POINT OF CARE TEST OR DERABLES Final Result * eGFR (03/24/2025 12:23 PM CDT) eGFR [...] BLOOD ORDERABLES Final Result Performing Organization Address City/[facility] Co in Phone Number EDVIN BUITRAGO [address] [facility] Department [place] [address] * Nicotine metabolite screen, urine (03/24/2025 12:23 PM CDT) Pathologist [facility] Nicotine, ur <5.0 <5.0 ng/mL [facility] Lab Cotinine, ur <5.0 <5.0 ng/mL [facility] Anabasine ur <2.0 <2.0 ng/mL [facility] Comment: ADDITIONAL INFORMATION This test was developed and its performance characteristics determined by [facility] in a manner consistent with CLIA requirements. This test has not been cleared or approved by the U.S. Food and Drug Administration. Test Performed by: [facility] - [facility] [address] [place] [address] Tree Deadener: Maykel Severino Ph.D.; CLIA# [id number] Nornicotine, ur <2.0 <2.0 ng/mL [facility] Urine (Urine, Clean Catch) 03/24/2025 12:23 PM CDT 03/24/2025 2:24 PM CDT Tanner He MD LAB URINE ORDERABLES Final Result [facility] [place] [address] [place] [facility] * Hemoglobin (03/24/2025 12:23 PM CDT) [facility] Hgb 13.7 11.9 - 15.5 g/dL Blood Venous blood specimen / Unknown 03/24/2025 12:23 PM CDT 03/24/2025 1:58 PM CDT Tanner He MD LAB BLOOD ORDERABLES Final Result Performing Organization Address [facility] de Phone Number EDVIN [address] [address] * Hemoglobin A1c (03/24/2025 12:23 PM CDT) [facility] Hgb A1C 5.4 4.0 - 5.6 % Estimated Average Glucose 108 mg/dL [facility] Comment: The ADA recommends reporting an estimated Average Glucose (eAG) with all Hemoglobin A1c results using the equation derived from a study of 507 normal and diabetic adults. Minority populations were underrepresented and children were not included. (Diabetes Care 31:4178-3732, 2008). The eAG is not equivalent to a fasting glucose. Blood Venous blood specimen / Unknown 03/24/2025 12:23 PM CDT 03/24/2025 1:58 PM CDT Tanner He MD LAB BLOOD ORDERABLES Final Result Performing Organization Address [facility] Co de Phone Number EDVIN [facility] [place] [address] * Glucose, random (03/24/2025 12:23 PM CDT) [facility] Glucose 144 70 - 199 mg/dL Comment: [...] BLOOD ORDERABLES Final Result Performing Organization Address City/[facility] Co de Phone Number [address] [address] * Creatinine (03/24/2025 12:23 PM CDT) Creatinine 0.71 0.60 - 1.10 mg/dL Blood Venous blood specimen / Unknown 03/24/2025 12:23 PM CDT 03/24/2025 1:58 PM CDT Tanner He MD LAB BLOOD ORDERABLES Final Result Performing Organization Address City/[facility] Co de Phone Number [address] [address] * Albumin (03/24/2025 12:23 PM CDT) Albumin 4.4 3.5 - 5.0 g/dL Blood Venous blood specimen / Unknown 03/24/2025 12:23 PM CDT 03/24/2025 1:58 PM CDT us Tanner He MD LAB BLOOD ORDERABLES Final Result Performing Organization Address [facility] Co de Phone Number [address] [address] * Vitamin D 25 hydroxy (03/12/2025 10:40 AM CDT) Vitamin D 25-OH 68 30 - 80 ng/mL Blood 03/12/2025 10:4 0 AM CDT 03/12/2025 4:19 PM CDT Laura PARDO CH - 03/12/2025 5:52 PM CDT FAX RESULTS TO [phone] KATHIA HARRISON us Elis Sanchez MD LAB BLOOD ORDERABLES Fin al Result EDV[facility] [address] Department [place] [address] from Last 3 Months Insurance [facility] [employer] [facility] Care Teams Public Works Inspector Relationship Specialty Start Date End Date Elbert Vidal MD [address] [facility] [address] [address] PCP - General Family Practice 06/17/24
--- OUTSIDE RECORDS SUMMARY | 2025-05-28 00:52 | XMS_ITS | Clinical Summary ---
Author Organization [facility] Address [address], [address] [address] Phone Care Team Providers Care Stator Tester Name Role Phone Carlton Reaves DO Unavailable [phone] Elbert Vidal MD Primary Care Provider [...] Take 1 Tab by mouth daily. Active [place]-3 Fatty Acids (FISH OIL PO) Take 1,400 [...] Cap by mouth daily. Active Probiotic Product (Purchasing Platform) Capsule Take 1 Cap by mouth daily. [...] Recently Relevant to Health Maintenance Care Teams Stator Tester Relationship Specialty Start Date End Date Elbert Vidal MD PCP - General Family Medicine 03/11/19 Carlton Reaves DO Gastroenterology 10/02/16
--- NOTE | 2025-05-28 07:23 | WPDHPUPDATE1 ---
History and Physical Update Update Date/Time: 05/28/25 07:23 History and Physical has been reviewed, including an updated exam of the patient. There are NO changes in the patient's condition. Risks, benefits, and alternatives have been discussed and questions answered. Patient agrees to proceed with procedure.
[2025-05-28] MEDS: LACTATED RINGERS 1,000 ML 30 ML IV CONT ×2 (11:30→15:23)
[2025-05-28] MEDS: TRANEXAMIC ACID 1,000MG/ISO100 1,000 MG/100 ML BAG 200 MG IVPB (12:07)
[2025-05-28] MEDS: ACETAMINOPHEN 500 MG TABLET 1000 MG PO (12:07)
--- NOTE | 2025-05-28 12:39 | P.PNAN_ITS ---
Anes - Initial Pre Proc Eval Procedure: Operation Date: 05/28/25 13:00 Proposed Procedures p Right Total Hip Arthroplasty - Tanner He MD Date/Time: 05/28/25 12:39 Surgeon: Tanner He MD Pre Op Diagnosis: Prim O A Rt Hip Patient Data Age: 64 Gender: F Height: 1.68 m Weight: 76.2 kg Last Vital Signs Temp 36.7 C 05/28/25 12:00 Pulse 71 05/28/25 12:00 Resp 16 05/28/25 12:00 BP 138/81 05/28/25 12:00 Pulse Ox 100 05/28/25 12:00 O2 Del Method Room Air 05/28/25 12:00 Allergies Allergy/AdvReac Type Severity Reaction Status Date / Time trimethoprim Allergy Intermediate Hives Verified 05/28/25 11:55 Sulfa (Sulfonamide Allergy Mild HIVES Verified 05/28/25 11:55 Antibiotics) sulfamethoxazole Allergy Mild HIVES Verified 05/28/25 11:55 erythromycin base Allergy Unknown Other Verified 05/28/25 11:55 Home Medications ?Medication ?Instructions ?Recorded ?Confirmed ?Type estradiol-norethindrone acet 0.5 1 tablet PO DAILY 05/28/25 History mg-0.1 mg tablet cholecalciferol (vitamin D3) 50 50 mcg PO DAILY 05/28/25 History mcg (2,000 unit) capsule meloxicam 15 mg tablet 15 mg PO DAILY #60 tabs 11/1105/28/25 Rx estradiol 0.01% (0.1 mg/gram) 1 g vaginal 3XW 01/21/25 05/15/25 History vaginal cream atorvastatin 40 mg tablet (Lipitor) 40 mg PO QHS #90 t abs 01/26/25 05/28/25 Rx multivitamin 1 tablet PO DAILY 01/26/25 1 History pantoprazole 20 mg tablet,delayed 20 mg PO QAM #90 tab s 03/20/25 05/28/25 Rx release ascorbic acid (vitamin C) 1,000 mg 1,000 mg PO DAILY 0 05/11/25 05/28/25 History tablet,extended release (C Complex) calcium 600 mg (as 1 tablet PO DAILY 05/11/25 1 History carbonate)-vitamin D3 5 mcg (200 unit) tablet (Calcium 600 + D(3)) cetirizine 10 mg tablet (24Hour 10 mg PO DAILY PRN all ergy symptoms 05/11/25 05/28/25 History Allergy) fiber 4 cap PO BID 05/11/25 History glucosamine sulf dipot cap PO DAILY 05/11/25 History chlr,msm,chond 550 mg-C 30 mg-robert 1 mg capsule (Glucosamine Chondroitin) ibuprofen 200 mg tablet (Advil) 600 mg PO PRN PRN pain 05/11/25 05/28/25 History lactobacillus combination no.4 3 3,000 mmu cells PO DA CARLINE 05/11/25 05/28/25 History billion cell capsule (Probiotic) magnesium 250 mg tablet 250 mg PO DAILY 05/11/25 History omega 5-fnr-kzm-fish oil 1,200 mg 1 cap PO DAILY 05/1105/28/25 History (144 mg-216 mg) capsule (Fish Oil) vitamin A-vitamin C-vit E-min 1 tablet PO DAILY 05/28/25 History tablet (Ocutabs tablet) zinc 50 mg tablet 50 mg PO DAILY 05/11/2505/13 History acyclovir 400 mg tablet 400 mg PO TID PRN Fever blis ters 05/21/25 05/28/25 Rx #270 tabs aspirin 81 mg tablet,delayed 81 mg PO BID 14 days #28 tabs 05/28/25 Rx release oxycodone-acetaminophen 5 mg-325 1 - 2 tablet PO Q4-6H PRN pain 7 05/28/25 Rx mg tablet days #30 tabs Laboratory Tests 05/28/25 11:32 Blood Type Pending Antibody Screen Pending Patient hx anesthesia problems: none Family hx anesthesia problems: none Results Review: All pre-operative results and documents have been reviewed as part of the pre- operative evaluation. [facility] Past Medical History Medical History (Reviewed 05/15/25 @ 08:53 by Kendra aGrcia, [facility]) Subclinical hypothyroidism Cystocele Arthritis of right hip Claustrophobia History of colon polyps Osteopenia Left fibular fracture 12/2005 GERD without esophagitis Dyslipidemia Recurrent herpes simplex Surgical History Surgical History (Reviewed 05/15/25 @ 08:53 by Kendra Garcia [facility]) H/O colonoscopy History of root canal procedure (~2020) Family History Family History (Reviewed 05/15/25 @ 08:53 by Kendra Garcia [facility]) Mother Hypertension Father Asthma Grandparent Family history of cardiovascular disease Other Family history of malignant neoplasm of breast Social History Social History (Reviewed 05/15/25 @ 08:53 by Kendra Garcia [facility]) Smoking status: Never smoker Second hand tobacco smoke exposure: No Additional smoking assessment comments: DENIES ANY FORM OF TOBACCO USE Alcohol intake: never Substance use: never Substance use type: does not use Do You Feel Safe in your Home?: Yes Lack of Transportation: No Lack of Food: Never True Current Housing: I Have Housing Concerned About Future Housing: No Difficulty Paying Gas/Electric Bills: No Difficulty Paying for Meds: No Education: High School Diploma/GED Difficulty w/ Childcare or Family Care: No Living arrangements: with family Additional living arrangements comments: Occupation/Education: occupation Additional occupation/education comments: [employer] Gender identity (if verbalized by the patient): Male Sexual Orientation (if Verbalized by the Patient): Straight or Heterosexual Spiritual care concerns: No Anes - Eval Final PreProcedure Day of Procedure 05/28/25 12:39 Patient weight: overweight Heart: regular rate and rhythm Lungs: clear to auscultation Airway: Mallampati scale class II Neurological: alert and oriented Last oral intake: >/= 8 hours ASA classification: II Emergent: no Anesthetic plan: proceed Anesthesia type and monitoring: general ETT and standard monitoring Results Review: All pre-operative results and documents have been reviewed as part of the pre- operative evaluation. Informed Consent: The patient's anesthetic plan and its attendant risks and benefits were discussed with the patient/family/POA. Questions were solicited and answers provided to the satisfaction of the patient/family/POA.
[2025-05-28] MEDS: ceFAZolin 2 GM in SODIUM CHLORIDE 0.9% IV 50 ML 100 ML IVPB ×2 (13:06→20:52)
[2025-05-28] MEDS: SODIUM CHLORIDE 0.9% IV 37.7 ML, MORPHINE SULFATE INJ (*CRX) 2 MG, ROPivacaine HCL 1% 2... INFILTRATE (13:34)
[2025-05-28] MEDS: TRANEXAMIC ACID 1,000 MG/10 ML AMPUL 1000 MG IV PUSH (14:41)
--- NOTE | 2025-05-28 15:09 | W.PM.PROC2 ---
Procedure Note - Detailed Date of Procedure 05/28/25 Pre-op Diagnosis Right hip degenerative arthritis. Post-op Diagnosis Same Procedure Performed Right Total Hip Arthroplasty Surgeon Tanner He MD Annealing Furnace Operator Judi Morales PA-C Anesthesia General Description of Procedure The patient was given preoperative antibiotics. A general anesthetic was administered. The patient was carefully placed in the lateral decubitus position on the PEG board. The shoulders and hips were carefully positioned for component and leg length positioning reference. The hip was prepped and draped in the usual sterile fashion. A longitudinal incision was created over the posterior aspect of the greater trochanter. Careful dissection was brought down through the deep fascia with electrocautery. A minimally invasive optimized posterior approach to the hip was performed. The short external rotators and capsule were taken down in an L-shaped capsulotomy. The tissue was tagged for later repair using number 2 high strength suture. The femoral neck was measured and taken in situ. The femoral head was removed. The acetabulum was carefully exposed. The inferior capsule was released. The labrum was resected. The acetabulum was sequentially reamed to 2 under the intended cup size. The cup was impacted into position with excellent press-fit. On supplemental screw placed. Typical anatomic landmarks, including the bony contact points as well as the inferior transverse acetabular ligament were used to confirm cup positioning with preoperative templating. Attention was turned to the femur, which was carefully exposed. The hip was reamed and then broached sequentially. Excellent press-fit was obtained with the broach. The hip was trialed. Measurements were utilized, including the lesser trochanter as well as the center of the femoral head and the tip of the trochanter, and excellent assessment of the offset and leg lengths were confirmed. Intraoperative x-ray was taken. The real component was impacted into position. Trialing confirmed appropriate leg length and offset with soft tissue balancing as well apparent feel of the leg, both at the knee and the heel. Soft tissues were assessed using the the iliotibial band. Reduction of the posterior capsule and external rotators were also used as a secondary assessment. The hip was copiously irrigated with pulsatile lavage periodically throughout the procedure. The real components were then assembled and reduced. The hip was stable throughout typical maneuvers, including extension, external rotation to 70 degrees, the position of sleep as well as flexion to 90 degrees with internal rotation past 35 degrees. The shake test confirmed stability without impingement. Osteophytes were removed as necessary. The short external rotators and capsule were repaired back to the posterior trochanter through drill holes. The deep fascia was repaired with running number 2 barbed suture, followed by 2-0 Stratafix suture and 3-0 Stratafix suture in the dermis. Steri-Strips were placed on the skin, followed by a sterile occlusive dressing. There were no complications. Meticulous hemostasis was maintained with the AquaMantys device. The patient was brought to the recovery room in stable condition. There were no complications. Physician engineering inspection assistant, Judi Morales PA-C, required for surgery; including patient positioning, draping, tissue retraction, maintaining instrument position, hip dislocation/ relocation, wound closure, and dressing placement. Implants Restore 3D (Conformis) Actera hip standard offset size 3 , was utilized with excellent press-fit. The 52 mm Trident II acetabular component was impacted with excellent press-fit stability. Standard polyethylene liner the +0, 36 mm Biolox ceramic femoral head was utilized. Estimated Blood Loss 500 Drains No Packing No Pathology None sent Complications No immediate complications Condition Stable Disposition PACU [facility] Billing Surgery - Charge Forward: Surgery Billing
[2025-05-28] MEDS: fentaNYL CITRATE INJ (*CRX) 100 MCG/2 ML VIAL 25 MCG IV PUSH ×8 (15:40→16:15)
[2025-05-28] MEDS: HYDROmorphone HCL INJ (*CRX) 1 MG/ML SYR 0.5 MG IV PUSH ×2 (16:37→16:50)
--- NOTE | 2025-05-28 17:23 | ADMGEN ---
This patient, Eufemia Lechuga, was admitted to [facility] Surg Room 303-01. Patient/family oriented to hospital policies and general routines including ID bracelet, bed and alarms, visiting hours, pain management, procedures, bathroom and other care routines, personal items, smoking policy, room service/diet, and visiting hours. Information on how to activate the Rapid Response Team has been discussed. Patient/Family are encouraged to report perceived risks to care and to ask questions if they do not understand what they are told or what they should do.
[2025-05-28] MEDS: ONDANSETRON INJ 4 MG/2 ML VIAL IV PUSH (18:08)
[2025-05-28] MEDS: SENNA/DOCUSATE SODIUM TABLET 2 TAB PO (18:09)
[2025-05-28] MEDS: CYCLOBENZAPRINE HCL 10 MG TABLET PO (18:09)
[2025-05-28] MEDS: oxyCODONE/ACETAMINOPHEN (*CRX) 10-325 MG TABLET 1 TAB PO (18:09)
[2025-05-28] MEDS: SODIUM CHLORIDE 0.9% IV 1,000 ML 125 ML IV CONT (18:12)
[2025-05-28] MEDS: ASPIRIN 81 MG ENTERIC TABLET PO (20:52)
[2025-05-28] MEDS: ATORVASTATIN 40 MG TABLET PO (20:52)
[2025-05-28] MEDS: FAMOTIDINE 20 MG TABLET PO (20:52)
[2025-05-28] MEDS: ACETAMINOPHEN 325 MG TABLET 650 MG PO (23:08)
[2025-05-29] MEDS: SODIUM CHLORIDE 0.9% IV 1,000 ML 125 ML IV CONT (05:26)
[2025-05-29] MEDS: ceFAZolin 2 GM in SODIUM CHLORIDE 0.9% IV 50 ML 100 ML IVPB ×2 (05:26→11:55)
[2025-05-29] MEDS: ACETAMINOPHEN 325 MG TABLET 650 MG PO ×2 (05:26→11:30)
[2025-05-29 06:20] LABS: Hematocrit 36.0 % (37.0-47.0); Hemoglobin 11.6 g/dL (12.0-15.0); Immature Granulocyte Percent A 0.9 % (0-0.5); Lymphocytes Absolute Auto 1.58 K/mm3 (0.9-3.2); Mean Corpuscular HGB Conc 32.2 g/dl (32-36); Mean Corpuscular Hemoglobin 31.1 pg (26-34); Mean Corpuscular Volume 96.5 fl (80-100); Nucleated Red Blood Cells Absolute Auto 0.000 K/mm3 (0.0-0.012); Nucleated Red Blood Cells Perc 0.0 % (0.0-0.2); Platelet Count Result 240 k/mm3 (150-375); Red Blood Count 3.73 M/mm3 (4.2-5.4); White Blood Count 13.6 K/mm3 (4.5-10.0)
[2025-05-29 06:40] LABS: Anion Gap 6 mmol/L (4-12); Blood Urea Nitrogen 16 mg/dL (7-17); Calcium 8.4 mg/dL (8.4-10.2); Carbon Dioxide 25 mmol/L (22-30); Chloride 104 mmol/L (98-107); Estimated CRCL calculation 77 ml/min; Estimated Glomerular Filt Rate > 60; Glucose 109 mg/dL (65-110); Potassium 4.4 mmol/L (3.4-5.0); Sodium 135 mmol/L (137-145)
[2025-05-29 07:03] VITALS: BP 106/56; PULSE 84; RESP 16; TEMP 36.4; O2SAT 98
[2025-05-29] MEDS: FAMOTIDINE 20 MG TABLET PO (08:34)
[2025-05-29] MEDS: oxyCODONE/ACETAMINOPHEN (*CRX) 10-325 MG TABLET 1 TAB PO (08:34)
[2025-05-29] MEDS: MELOXICAM 7.5 MG TABLET 15 MG PO (08:34)
[2025-05-29] MEDS: SENNA/DOCUSATE SODIUM TABLET 2 TAB PO (08:34)
[2025-05-29] MEDS: ASPIRIN 81 MG ENTERIC TABLET PO (08:34)
[2025-05-29] MEDS: PANTOPRAZOLE SOD SESQUIHYDRATE 20 MG TAB PO (08:34)
[2025-05-29 10:50] VITALS: BP 117/62; PULSE 70; RESP 16; TEMP 36.5; O2SAT 100
[2025-05-29] MEDS: oxyCODONE/ACETAMINOPHEN (*CRX) 5-325 MG TABLET 1 TABLET PO (11:40)
== END 2025-05-29 13:55 | disposition home or self-care (01) ==
LOC: ANHSURGERY 10:58 → ANH3MEDSUR 17:10
PROVIDERS: Physician Assistant Surgical; PCP Family Medicine; Visit Provider Orthopaedic Surgery
PROC: (CPT 27130; principal; 2025-05-28 13:00)
DX: M16.11 Unilateral primary osteoarthritis, right hip (principal); Z79.899 Other long term (current) drug therapy
CPT/HCPCS: 27130; 36415; 73502; 80048; 85025; 86850; 86900; 86901; 97110; 97116; 97161; 97166; 97530; 97535; 99199; J0690; A9270; J0166; J1100; J1171; J1885; J2003; J2250; J2270; J2405; J2704; J2795; J3010; J3290; J7030; J7120

== ENCOUNTER 2025-08-07 10:59 | Outpatient (CLI) | payer OTHER, SELFPAY ==
--- NOTE | ~2025-08-07 | MM_ITS ---
EXAMINATION: MM screening carroll BI w alex HISTORY: Screening TECHNIQUE: Craniocaudal and mediolateral oblique 3-D tomosynthesis images were obtained and synthetic 2-D images were generated. CAD analysis was submitted and interpreted. COMPARISON: Comparison to multiple prior studies sequentially, with oldest reviewed study dated 12/27/2020. BREAST PARENCHYMAL COMPOSITION: Dense: The breasts are heterogeneously dense, which may obscure small masses FINDINGS: There is no evidence of suspicious mass, calcification, or architectural distortion to suggest malignancy in either breast. There has been no suspicious interval change. IMPRESSION: 1. No mammographic evidence of malignancy. 2. Recommend routine screening mammography in one year. BI-RADS Category 1: Negative Reviewed, dictated and finalized at location O. 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
== END 2025-08-07 11:00 | disposition home or self-care (01) ==
LOC: MICIMG 11:00
PROVIDERS: PCP Family Medicine; Visit Provider Obstetrics & Gynecology Gynecology
DX: Z12.31 Encounter for screening mammogram for malignant neoplasm of breast (principal)
CPT/HCPCS: 77063; 77067